=== PATIENT | female | born 1945 ===

== ENCOUNTER → 2023-09-05 06:26 | Day surgery (SDC) | payer MEDICARE, OTHER, SELFPAY ==
[2023-09-05 07:05] VITALS: BMI 29.5
[2023-09-05 07:15] VITALS: BP 123/69
[2023-09-05 07:19] VITALS: BMI 29.5
[2023-09-05 07:36] LABS: Glucose - Point of Care 165 mg/dl (70-99)
[2023-09-05 09:25] VITALS: BP 128/64
[2023-09-05 09:40] VITALS: BP 132/66
[2023-09-05 09:54] VITALS: BP 132/75
[2023-09-05 09:55] VITALS: BP 132/75
== END ==
LOC: GI 06:26
PROVIDERS: ATTENDING PHYSICIAN Internal Medicine Gastroenterology
DX: D12.1 Benign neoplasm of appendix (principal); D12.2 Benign neoplasm of ascending colon; D12.3 Benign neoplasm of transverse colon; K57.30 Diverticulosis of large intestine without perforation or abscess without bleeding; K64.0 First degree hemorrhoids
CPT/HCPCS: 45390; 45385; 88305; 82962